=== PATIENT | female | born 1955 | race Caucasian/White ===

== ENCOUNTER 2023-09-13 16:36 | Outpatient (RCR) | payer OTHER, SELFPAY | END 2023-09-13 23:59 | disposition home or self-care (01) | LOC: RPT 16:36 | PROVIDERS: ATTENDING PHYSICIAN Obstetrics & Gynecology; PRIMARYCARE PHYSICIAN Family Medicine | DX: M62.89 Other specified disorders of muscle (principal); R10.2 Pelvic and perineal pain; R39.15 Urgency of urination; R15.1 Fecal smearing | CPT/HCPCS: 97162; 97530 ==

== ENCOUNTER 2023-10-18 18:16 | Outpatient (RCR) | payer OTHER, SELFPAY | END 2023-10-18 23:59 | disposition home or self-care (01) | LOC: RPT 18:16 | PROVIDERS: ATTENDING PHYSICIAN Obstetrics & Gynecology; PRIMARYCARE PHYSICIAN Family Medicine | DX: M62.89 Other specified disorders of muscle (principal); R10.2 Pelvic and perineal pain; R39.15 Urgency of urination; R15.1 Fecal smearing; Z73.6 Limitation of activities due to disability; Z98.890 Other specified postprocedural states | CPT/HCPCS: 97112; 97140; 97530 ==

== ENCOUNTER → 2023-11-16 15:31 | Outpatient (REF) | payer OTHER, SELFPAY | LOC: HWRAD 15:31 | PROVIDERS: ATTENDING PHYSICIAN Obstetrics & Gynecology; FAMILY PHYSICIAN Family Medicine | DX: Z78.0 Asymptomatic menopausal state (principal) | CPT/HCPCS: 77080 ==

== ENCOUNTER 2023-11-21 19:17 | Outpatient (RCR) | payer OTHER, SELFPAY | END 2023-11-21 23:59 | disposition home or self-care (01) | LOC: RPT 19:17 | PROVIDERS: ATTENDING PHYSICIAN Obstetrics & Gynecology; PRIMARYCARE PHYSICIAN Family Medicine | DX: M62.89 Other specified disorders of muscle (principal); R10.2 Pelvic and perineal pain; R39.15 Urgency of urination; R15.1 Fecal smearing; Z73.6 Limitation of activities due to disability | CPT/HCPCS: 97112; 97140; 97530 ==

== ENCOUNTER 2023-12-07 15:57 | Emergency (ER) | payer OTHER, SELFPAY ==
[2023-12-07 16:04] VITALS: BP 135/77
[2023-12-07 16:28] LABS: % Basophils 0.5 % (0-2); % Eosinophils 0.6 % (0-6); % Immature Granulocytes 0.2 % (0-0.5); % Lymphocytes 11.9 % (20.5-51.1); % Monocytes 6.1 % (1.7-9.3); % Neutrophils 80.7 % (42.2-75.2); Absolute Eosinophils 0.1 10^3/uL (0-0.7); Absolute Lymphocytes 1.1 10^3/uL (1.2-3.4); Absolute Monocytes 0.5 10^3/uL (0.1-0.6); Absolute Neutrophils 7.2 10^3/uL (1.4-6.5); Hematocrit 39.5 % (37.0-47.0); Hemoglobin 13.4 g/dL (12.0-16.0); Mean Corp Hgb Conc. 33.9 g/dL (33.0-37.0); Mean Corpuscular Hgb 28.1 pg (27.0-31.0); Mean Corpuscular Volume 82.8 fL (81.0-99.0); Mean Platelet Volume 9.4 fL (7.4-10.4); Nucleated Red Blood Cells % 0 %; Platelet Count 191 10^3/uL (130-400); Red Blood Cell Count 4.77 10^6/uL (4.20-5.40); Red Cell Dist. Width 13.2 % (11.5-14.5); White Blood Cell Count 8.9 10^3/uL (4.8-10.8)
[2023-12-07 16:44] LABS: ALT (SGPT) 17 U/L (0-35); AST (SGOT) 22 U/L (14-36); Albumin 4.6 g/dl (3.5-5.0); Alkaline Phosphatase 74 U/L (38-126); Blood Urea Nitrogen 22 mg/dl (7-17); Carbon Dioxide 28 mmol/L (22-30); Chloride 102 mmol/L (98-107); Glucose 98 mg/dl (70-99); Lipase 113 U/L (23-300); Potassium 3.9 mmol/L (3.5-5.1); Sodium 137 mmol/L (135-145); Total Bilirubin 0.8 mg/dl (0.2-1.3); Total Protein 7.7 g/dl (6.3-8.2); eGFR > 60.00
--- NOTE | 2023-12-07 17:29 | ED.GENMED ---
History of Present Illness
General
Chief Complaint: Abdominal Pain
Source: patient
Time Seen by Provider: 12/07/23 17:11
Travel History
Have you had any contact with someone who has COVID-19?: No
Do you have any symptoms of coronavirus? Fever > 100 degrees, chills, cough, shortness of breath, sore throat, loss of taste or smell, muscle aches, or headache?: No
History of Present Illness
History of Present Illness:
67-year-old female presents to the emergency room complaining of right lower quadrant abdominal pain. Pain began this morning. It is increased in severity. Seems worse with movement. Patient has had a total hysterectomy and pelvic floor
reconstruction a few months ago. She denies any fever. She has had some mild constipation. She did not take anything for the pain. She denies nausea or vomiting.
Past History
Past History
ED Past Medical History: Psychiatric (Anxiety), Other (Diverticulitis) and Other (Kidney stones)
ED Past Surgical History:
Social History
Tobacco: Non-smoker
Alcohol: None
Drug: None
Personal:
Living: with family
Employment: Employed
Family History
Family History: Other (Noncontributory)
Phy Exam
Physical Exam
Physical Exam:
General: Awake, Alert, Oriented X3. No acute distress.
Vitals: unremarkable
Head: Atraumatic
Eyes: Pupils equal, EOMI
Throat: Airway intact, no exudates
Neck: Trachea midline
Lungs: Clear and equal b/l
Heart: Regular rate, no murmurs
Abd: Soft, right lower quadrant tenderness to palpation, No pulsatile mass
Rectal:
Neuro: Nonfocal
Skin: Warm, dry, no rash
Extremities: pulses equal b/l, no edema
Course
Orders/Labs/Results
Orders:
Orders
12/07/23 16:18
Complete Blood Count/With Diff Urgent
Comprehensive Metabolic Panel Urgent
Lactic Acid Urgent
Lipase Urgent
Blood Culture Urgent
ZEKE Source: Blood/Venous
Specimen Description:
12/07/23 17:23
CT Abd/pelvis W Iv Cont Urgent
Comment:
Reason For Exam: rlq abd pain
12/07/23 17:25
0.9% Sodium Chloride 1000 ml [Nss] 1,000 ml IV BOLUS
Ketorolac [Toradol] 15 mg IV NOW STA
12/07/23 18:48
Amoxicillin 875 mg/Clav 125 mg [Augmentin 875 mg/125 mg] 1 tablet PO NOW STA
Abnormal Lab Results
12/07/23
16:18
Absolute Neuts (auto) 7.2 H 10^3/uL
(1.4-6.5)
Absolute Lymphs (auto) 1.1 L 10^3/uL
(1.2-3.4)
Neutrophils % 80.7 H %
(42.2-75.2)
Lymphocytes % 11.9 L %
(20.5-51.1)
BUN 22 H mg/dl
(7-17)
12/07/23 16:18
12/07/23 16:18
Vital Signs
Initial and Last Documented VS:
Initial Vital Signs
Temp Pulse Resp BP Pulse Ox
99.3 F 95 18 135/77 99
12/07/23 16:04 12/07/23 16:04 12/07/23 16:04 12/07/23 16:04 12/07/23 16:04
Last Documented Vital Signs
Temp Pulse Resp BP Pulse Ox
99.3 F 90 16 132/70 98
12/07/23 16:04 12/07/23 19:05 12/07/23 19:05 12/07/23 19:05 12/07/23 19:05
MDM/Problems Addressed
Differential Diagnosis Includes:
Appendicitis, diverticulitis, kidney stone
MDM/Problems Addressed:
CT positive for diverticulitis. Patient good candidate for outpatient management. Will prescribe 7 days of Augmentin twice daily. Patient understands she should return for increasing abdominal pain, fever, inability to tolerate oral intake
*Radiology
Radiology exam reviewed: radiology read reviewed
*Critical Care Note
Total Time (30-74mins, 75-104mins- exclusive of procedures): Not Applicable
ED Attending Note
-
Portions of this chart may have been created with voice recognition software.� Occasional wrong word or��sound alike� substitutions may have occurred due to the inherent limitations of voice recognition software.
Discharge Plan
Departure
Patient Disposition: Home (Routine Discharge)
Date of Disposition: 12/07/23
Time of Disposition: 18:40
Patient with high blood pressure during this ER visit?: Yes
Condition: Good
Discharge Problem:
Diverticulitis
Instructions: Diverticulitis (DC)
Prescriptions:
New
amoxicillin-pot clavulanate 875-125 mg tablet
1 tab PO BID Qty: 14 0RF
No Action
acetaminophen 325 mg Tablet
650 mg PO Q4HPRN PRN (Reason: mild pain) Qty: 0 0RF
oxycodone 5 mg Tablet
2.5 mg PO Q4HPRN PRN (Reason: moderate pain) Qty: 0 0RF
oxycodone 5 mg Tablet
5 mg PO Q4HPRN PRN (Reason: severe pain when tolerating PO) Qty: 12 0RF
Referrals:
Robbi Teixeira MD [Active] -
Beckie Banegas MD [Family Provider] -
Activity Restrictions/Additional Instructions:
Your CT shows diverticulitis. I sent a prescription for an antibiotic which you should take twice a day for a week. You should follow up with a GI doctor to make sure everything clears up....you need a colonoscopy as part of follow up for this.
Please call the GI doctor's office and make an appointment.
Interventions
Interventions:
*Risk Screen - Suicide Last Done: 12/07/23 16:04
*General Assessment Last Done: 12/07/23 16:04
*Neglect/Abuse Screening Last Done: 12/07/23 17:32
ED- Fall Risk Assessment Last Done: 12/07/23 17:32
*ED COVID-19 Vaccine History Last Done: 12/07/23 17:32
*Nursing Disposition Last Done: 12/07/23 19:07
ZX-Ryvdqw-Wzgaodnznm Assessment Last Done: 12/07/23 17:32
Discharge Date and Time
Discharge Date/Time: 12/07/23 19:08
[2023-12-07 17:32] VITALS: BMI 24.3
[2023-12-07] MEDS: NSS 1000 IV (17:52)
[2023-12-07] MEDS: TORADOL 15 MG IV (17:53)
[2023-12-07] MEDS: AUGMENTIN 875 MG/125 MG 1 TABLET PO (18:58)
[2023-12-07 19:05] VITALS: BP 132/70
== END 2023-12-07 19:08 | disposition home or self-care (01) ==
LOC: EMR 15:57
PROVIDERS: EMERGENCY PHYSICIAN Emergency Medicine; FAMILY PHYSICIAN Family Medicine
DX: K57.32 Diverticulitis of large intestine without perforation or abscess without bleeding (principal); R03.0 Elevated blood-pressure reading, without diagnosis of hypertension; Z87.442 Personal history of urinary calculi
CPT/HCPCS: 99284; 96374; 96361; 74177; 80053; 83605; 83690; 85025; 87040; Q9967

== ENCOUNTER 2023-12-20 16:07 | Outpatient (RCR) | payer OTHER, SELFPAY | END 2023-12-20 23:59 | disposition home or self-care (01) | LOC: RPT 16:07 | PROVIDERS: ATTENDING PHYSICIAN Obstetrics & Gynecology; PRIMARYCARE PHYSICIAN Family Medicine | DX: M62.89 Other specified disorders of muscle (principal); R10.2 Pelvic and perineal pain; R39.15 Urgency of urination; R15.1 Fecal smearing; Z73.6 Limitation of activities due to disability | CPT/HCPCS: 97140; 97530 ==

== ENCOUNTER 2024-01-02 16:57 | Outpatient (RCR) | payer OTHER, SELFPAY | END 2024-01-02 23:59 | disposition home or self-care (01) | LOC: RPT 16:57 | PROVIDERS: ATTENDING PHYSICIAN Obstetrics & Gynecology; PRIMARYCARE PHYSICIAN Family Medicine | DX: M62.89 Other specified disorders of muscle (principal); R10.2 Pelvic and perineal pain; R39.15 Urgency of urination; R15.1 Fecal smearing; Z73.6 Limitation of activities due to disability | CPT/HCPCS: 97140; 97530 ==

== ENCOUNTER → 2024-01-22 10:39 | Outpatient (REF) | payer OTHER, SELFPAY ==
[2024-01-22 11:53] LABS: Ionized Calcium 1.15 mMOL/L (1.15-1.33)
[2024-01-22 12:25] LABS: ALT (SGPT) 27 U/L (0-35); AST (SGOT) 28 U/L (14-36); Albumin 4.5 g/dl (3.5-5.0); Alkaline Phosphatase 77 U/L (38-126); Blood Urea Nitrogen 14 mg/dl (7-17); Calcium 9.3 mg/dl (8.4-10.2); Carbon Dioxide 27 mmol/L (22-30); Chloride 104 mmol/L (98-107); Glucose 91 mg/dl (70-99); Potassium 4.1 mmol/L (3.5-5.1); Sodium 139 mmol/L (135-145); Total Bilirubin 0.7 mg/dl (0.2-1.3); Total Protein 7.5 g/dl (6.3-8.2); eGFR > 60.00
[2024-01-22 12:40] LABS: Vitamin D, 25-OH*** 37.6 ng/mL (30-80)
[2024-01-22 12:56] LABS: Intact PTH 56.3 pg/ml (13.6-85.8)
== END ==
LOC: HWLAB 10:39
PROVIDERS: ATTENDING PHYSICIAN Internal Medicine Rheumatology; FAMILY PHYSICIAN Family Medicine; REFERRING PHYSICIAN Obstetrics & Gynecology
DX: E21.5 Disorder of parathyroid gland, unspecified (principal); E55.9 Vitamin D deficiency, unspecified; M81.0 Age-related osteoporosis without current pathological fracture; M54.9 Dorsalgia, unspecified
CPT/HCPCS: 36415; 72072; 72100; 80053; 82306; 82330; 83970

== ENCOUNTER → 2024-04-03 14:00 | Outpatient (REF) | payer OTHER, SELFPAY | LOC: WDC 14:00 | PROVIDERS: ATTENDING PHYSICIAN Obstetrics & Gynecology; FAMILY PHYSICIAN Family Medicine | DX: R92.2 Inconclusive mammogram (principal) | CPT/HCPCS: 76641 ==

== ENCOUNTER → 2024-12-08 09:12 | Outpatient (REF) | payer MEDICARE, OTHER, SELFPAY | LOC: HWWDC 09:12 | PROVIDERS: ATTENDING PHYSICIAN Family Medicine; REFERRING PHYSICIAN Obstetrics & Gynecology | DX: Z12.31 Encounter for screening mammogram for malignant neoplasm of breast (principal) | CPT/HCPCS: 77063; 77067 ==

== ENCOUNTER 2025-02-20 11:23 | Emergency (ER) | payer MEDICARE, OTHER, SELFPAY ==
[2025-02-20 11:30] VITALS: BP 139/92
[2025-02-20 13:50] VITALS: BMI 24.4
[2025-02-20 13:51] VITALS: BP 138/103
[2025-02-20 14:00] VITALS: BP 132/81
[2025-02-20 14:28] LABS: % Basophils 0.8 % (0-2); % Eosinophils 3.9 % (0-6); % Immature Granulocytes 0.2 % (0-0.5); % Lymphocytes 35.5 % (20.5-51.1); % Monocytes 8.1 % (1.7-9.3); % Neutrophils 51.5 % (42.2-75.2); Absolute Eosinophils 0.2 10^3/uL (0-0.7); Absolute Lymphocytes 1.7 10^3/uL (1.2-3.4); Absolute Monocytes 0.4 10^3/uL (0.1-0.6); Absolute Neutrophils 2.5 10^3/uL (1.4-6.5); Hematocrit 37.1 % (37.0-47.0); Hemoglobin 12.5 g/dL (12.0-16.0); Mean Corp Hgb Conc. 33.7 g/dL (33.0-37.0); Mean Corpuscular Hgb 28.2 pg (27.0-31.0); Mean Corpuscular Volume 83.6 fL (81.0-99.0); Mean Platelet Volume 9.1 fL (7.4-10.4); Nucleated Red Blood Cells % 0 %; Platelet Count 186 10^3/uL (130-400); Red Blood Cell Count 4.44 10^6/uL (4.20-5.40); Red Cell Dist. Width 13.4 % (11.5-14.5); White Blood Cell Count 4.8 10^3/uL (4.8-10.8)
[2025-02-20 14:52] LABS: Blood Urea Nitrogen 11 mg/dl (7-17); Calcium 8.7 mg/dl (8.4-10.2); Carbon Dioxide 28 mmol/L (22-30); Chloride 107 mmol/L (98-107); Estimated Creatinine Clearance 72 ml/min; Glucose 94 mg/dl (70-99); Potassium 3.7 mmol/L (3.5-5.1); Sodium 142 mmol/L (135-145); eGFR > 60.00
[2025-02-20 15:00] VITALS: BP 133/84
[2025-02-20 15:01] VITALS: BP 133/84
--- NOTE | 2025-02-20 17:08 | ED.GENMED ---
History of Present Illness
General
Chief Complaint: Skin Problem
Source: patient
Exam Limitations: none
Time Seen by Provider: 02/20/25 13:56
Nursing documentation reviewed up to this point in time: agreed with
History of Present Illness
History of Present Illness:
Patient presents to ED secondary to 1 week history of swelling/lump, noted over her left shoulder. Patient was evaluated at urgent care center who referred patient to ED for an evaluation. Denies fever or chills. Denies nausea or vomiting.
Denies chest pain or shortness of breath. Denies trauma. Denies recent weight changes. Denies previous history of similar symptoms. Patient does report mild painful sensation with palpation.
Past History
Past History
ED Past Medical History: Psychiatric (Anxiety), Other (Diverticulitis) and Other (Kidney stones)
ED Past Surgical History:
Social History
Tobacco: Non-smoker
Alcohol: None
Drug: None
Personal:
Living: with family
Employment: Employed
Family History
Family History: Other (Noncontributory)
Review of Systems
Review of Systems
Allergies reviewed?: Yes
All Other Systems: ROS reviewed and negative except as documented in HPI and ROS
Constitutional: Reports no symptoms; Denies fever
ABD/GI: Reports no symptoms
Musculoskeletal: Reports no symptoms
Skin: Reports other (swelling/lump)
Neurological: Reports no symptoms
Phy Exam
Physical Exam
Physical Exam:
Physical Exam
General: no apparent distress, not acutely ill. afebrile
Head: nc/at. eomi
Neck: supple. no meningeal signs.
Neuro: alert and oriented x 3. no focal neurological deficits
Skin: an approx 1mm raised cystic lesion noted near left shoulder, mildly tender to palpation, without surrounding erythema/ecchymosis/warmth
Psychiatric: well kept. interactive and cooperative
Extremities: no edema. no calf tenderness.
Course
Orders/Labs/Results
Orders:
Orders
02/20/25 14:12
CT Neck With Iv Contrast Urgent
Comment:
Reason For Exam: left sided nect pain w swelling, ext to trapezius
02/20/25 14:16
Basic Metabolic Panel Urgent
Complete Blood Count/With Diff Urgent
02/20/25 14:16
02/20/25 14:16
Vital Signs
Initial and Last Documented VS:
Initial Vital Signs
Temp Pulse Resp BP Pulse Ox
98.4 F 56 16 139/92 99
02/20/25 11:30 02/20/25 11:30 02/20/25 11:30 02/20/25 11:30 02/20/25 11:30
Last Documented Vital Signs
Temp Pulse Resp BP Pulse Ox
97.6 F 60 15 133/84 98
02/20/25 13:51 02/20/25 15:01 02/20/25 15:01 02/20/25 15:01 02/20/25 15:01
MDM/Problems Addressed
MDM/Problems Addressed:
CT neck report reviewed and discussed with patient. Blood work within normal limits. Patient otherwise remains afebrile, hemodynamically stable, and nontoxic-appearing. Patient advised to follow-up with her primary care physician and/or
qual research manager for reevaluation.
*Critical Care Note
Total Time (30-74mins, 75-104mins- exclusive of procedures): Not Applicable
ED Attending Note
-
Portions of this chart may have been created with voice recognition software.� Occasional wrong word or��sound alike� substitutions may have occurred due to the inherent limitations of voice recognition software.
Discharge Plan
Departure
Patient Disposition: Home (Routine Discharge)
Date of Disposition: 02/20/25
Time of Disposition: 17:08
Patient with high blood pressure during this ER visit?: Yes
Condition: Good
Discharge Problem:
Cyst
Prescriptions:
No Action
acetaminophen 325 mg Tablet
650 mg PO Q4HPRN PRN (Reason: mild pain) Qty: 0 0RF
Referrals:
Beckie Banegas MD [Family Provider, [facility]]
Activity Restrictions/Additional Instructions:
As discussed, please follow-up with your primary care physician and/or qual research manager for further evaluation and treatment.
Interventions
Interventions:
*Risk Screen - Suicide Last Done: 02/20/25 11:30
*General Assessment Last Done: 02/20/25 13:51
*Neglect/Abuse Screening Last Done: 02/20/25 11:30
*ED- Fall Risk Assessment Last Done: 02/20/25 13:51
*ED COVID-19 Vaccine History Last Done: 02/20/25 13:51
*Nursing Disposition Last Done: 02/20/25 17:15
ED-Skin Assessment Last Done: 02/20/25 13:51
Discharge Date and Time
Discharge Date/Time: 02/20/25 17:15
Print Language: PANAMANIAN
== END 2025-02-20 17:15 | disposition home or self-care (01) ==
LOC: EMR 11:23
PROVIDERS: EMERGENCY PHYSICIAN Emergency Medicine; FAMILY PHYSICIAN Family Medicine
DX: L72.9 Follicular cyst of the skin and subcutaneous tissue, unspecified (principal)
CPT/HCPCS: 99284; 70491; 80048; 85025; Q9967

== ENCOUNTER 2025-05-17 14:56 | Emergency (ER) | payer MEDICARE, OTHER, SELFPAY ==
[2025-05-17 15:00] VITALS: BP 128/89
[2025-05-17 15:23] LABS: Urine Character Clear (Clear)
[2025-05-17 15:25] LABS: Hematocrit 35.0 % (37.0-47.0); Hemoglobin 11.5 g/dL (12.0-16.0); Mean Corp Hgb Conc. 32.9 g/dL (33.0-37.0); Mean Corpuscular Volume 83.3 fL (81.0-99.0); Nucleated Red Blood Cells % 0 %; Platelet Count 216 10^3/uL (130-400); Red Cell Dist. Width 13.2 % (11.5-14.5)
[2025-05-17 15:35] LABS: ALT (SGPT) 14 U/L (0-35); AST (SGOT) 16 U/L (14-36); Albumin 4.0 g/dl (3.5-5.0); Alkaline Phosphatase 78 U/L (38-126); Blood Urea Nitrogen 11 mg/dl (7-17); Calcium 8.6 mg/dl (8.4-10.2); Carbon Dioxide 26 mmol/L (22-30); Chloride 106 mmol/L (98-107); Glucose 131 mg/dl (70-99); Potassium 3.9 mmol/L (3.5-5.1); Sodium 138 mmol/L (135-145); Total Protein 6.7 g/dl (6.3-8.2); eGFR > 60.00
--- NOTE | 2025-05-17 15:59 | ED.GENMED ---
History of Present Illness
General
Chief Complaint: Abdominal Symptoms
Source: patient
Exam Limitations: none
Time Seen by Provider: 05/17/25 15:37
Nursing documentation reviewed up to this point in time: agreed with
History of Present Illness
History of Present Illness:
Patient is a 69-year-old female with past medical history of diverticulitis presents to the ER for evaluation. For the past several days she has had abdominal bloating and yesterday noticed that she was urinating every 20 to 40 minutes. This
morning she reports an episode of incontinence which is not like her.
Today she notes she had left-sided abdominal pain which she also felt in her left back. She went to urgent care and urinalysis was negative and was sent here to the ER for evaluation. She does have a history of diverticulitis. She denies any
constipation diarrhea. She denies any weakness to lower extremities or numbness tingling. In addition she also would like a lump to the left lateral clavicle/neck area evaluated. She reports she was seen here in January 2025 and had a negative CAT
scan however this area has gotten bigger. She did see her family doctor for this who thought this might with antibiotics however she has not had improvement.
Past History
Past History
ED Past Medical History: Psychiatric (Anxiety), Other (Diverticulitis) and Other (Kidney stones)
ED Past Surgical History:
Social History
Tobacco: Non-smoker
Alcohol: None
Drug: None
Personal:
Living: with family
Employment: Employed
Family History
Family History: Other (Noncontributory)
Phy Exam
General Physical Exam
General Presentation: no apparent distress
General age: appears stated age
General Skin: warm and dry
General Habitus: normal
General Mental: alert
General Hydration: appears well hydrated
Cardiovascular Exam
Cardiovascular Exam: regular rate/rhythm, no murmur and normal peripheral pulses
Pulmonary Exam
Pulmonary Exam: lungs clear and no respiratory distress
Gastrointestinal Exam
Gastrointestinal Exam: soft (left sided abd tenderness )
Neurological Exam
Neurological Exam: alert and oriented x3
Musculoskeletal Exam
Musculoskeletal Exam: full ROM
Skin Exam
Skin Exam: normal color and warm/dry
Psychiatric Exam
Psychiatric Exam: normal mood/affect
Course
Orders/Labs/Results
Orders:
Orders
05/17/25 15:10
Complete Blood Count/With Diff Urgent
Comprehensive Metabolic Panel Urgent
05/17/25 15:14
Urinalysis Reflex To Culture Urgent
Date Specimen was Collected: 05/17/25
Time Specimen was Collected: 15:05
05/17/25 16:09
US Chest - Left Urgent
Comment:
Reason For Exam: mass left clavicle region
05/17/25 16:10
CT Abd/pelvis W Iv Cont Urgent
Comment:
Reason For Exam: left sided abd tenderness
05/17/25 16:14
0.9% Sodium Chloride 1000 ml [Nss] 1,000 ml IV BOLUS
Ketorolac [Toradol] 15 mg IV NOW STA
05/17/25 19:23
Amoxicillin 875 mg/Clav 125 mg [Augmentin 875 mg/125 mg] 1 tablet PO NOW STA
Abnormal Lab Results
05/17/25
15:10
Hgb 11.5 L g/dL
(12.0-16.0)
Hct 35.0 L %
(37.0-47.0)
MCHC 32.9 L g/dL
(33.0-37.0)
Absolute Neuts (auto) 6.6 H 10^3/uL
(1.4-6.5)
Lymphocytes % 15.1 L %
(20.5-51.1)
Glucose 131 H mg/dl
(70-99)
05/17/25 15:10
05/17/25 15:10
Vital Signs
Initial and Last Documented VS:
Initial Vital Signs
Temp Pulse Resp BP Pulse Ox
98.7 F 89 18 128/89 98
05/17/25 15:00 05/17/25 15:00 05/17/25 15:00 05/17/25 15:00 05/17/25 15:00
Last Documented Vital Signs
Temp Pulse Resp BP Pulse Ox
98.7 F 73 18 110/81 96
05/17/25 15:00 05/17/25 16:49 05/17/25 16:49 05/17/25 16:49 05/17/25 16:49
MDM/Problems Addressed
Differential Diagnosis Includes:
Not limited to diverticulitis, UTI soft tissue mass
MDM/Problems Addressed:
CAT scan shows findings consistent with acute diverticulitis of the mid transverse colon no perforation. There is a 4 mm solid nodule within the left lateral lobe which is nonspecific. I did review this with patient and did discuss outpatient
follow-up.
Patient is awake alert in no acute distress afebrile normal white count, negative urinalysis Will d/c on augmentin.
In addition pt has had swelling to left lateral neck region and had this evaluated February 20 here by CAT scan. She was diagnosed with cyst at the time however complains increased swelling to the area. Patient has a soft area of swelling just above
the clavicle adjacent to a cyst. Ultrasound does not reveal anything other than a cyst however discussed close outpatient follow-up with PCP may need additional imaging
She is stable for discharge home strict return precautions
*Radiology
Radiology exam reviewed: radiology read reviewed
*Pulse Oximetry
SaO2: 98
Oxygen Mode of Delivery: Room air
Patient hypoxic: no
*Critical Care Note
Total Time (30-74mins, 75-104mins- exclusive of procedures): Not Applicable
ED Attending Note
-
Portions of this chart may have been created with voice recognition software.� Occasional wrong word or��sound alike� substitutions may have occurred due to the inherent limitations of voice recognition software.
Discharge Plan
Departure
Patient Disposition: Home (Routine Discharge)
Date of Disposition: 05/17/25
Time of Disposition: 19:23
Patient with high blood pressure during this ER visit?: Yes
Condition: Fair
Covid-19: Not Applicable
Discharge Problem:
Diverticulitis
Instructions: Diverticulitis (DC), BLOOD PRESSURE
Prescriptions:
New
amoxicillin-pot clavulanate 875-125 mg tablet
1 tab PO BID Qty: 20 0RF
No Action
acetaminophen 325 mg Tablet
650 mg PO Q4HPRN PRN (Reason: mild pain) Qty: 0 0RF
Referrals:
Beckie Banegas MD [Family Provider, Family Practice]
Activity Restrictions/Additional Instructions:
As discussed you are prescribed Augmentin to take for diverticulitis take twice a day for the next 10 days. This medication was sent to your pharmacy
Also please follow-up with your family doctor for other additional findings including pulmonary nodule as well as persistent swelling to left lateral neck region. You may need additional imaging. Return if any worsening of symptoms.
Interventions
Interventions:
*Risk Screen - Suicide Last Done: 05/17/25 15:00
*General Assessment Last Done: 05/17/25 15:00
*Neglect/Abuse Screening Last Done: 05/17/25 15:00
DB-Gnbuok-Txtiukcxsn Assessment Last Done: 05/17/25 17:15
Discharge Date and Time
Print Language: UZBEK
[2025-05-17] MEDS: TORADOL 15 MG IV (16:47)
[2025-05-17] MEDS: NSS 1000 IV (16:47)
[2025-05-17 16:49] VITALS: BP 110/81
[2025-05-17] MEDS: AUGMENTIN 875 MG/125 MG 1 TABLET PO (19:52)
== END 2025-05-17 20:07 | disposition home or self-care (01) ==
LOC: EMR 14:56
PROVIDERS: Emergency Medicine; EMERGENCY PHYSICIAN Emergency Medicine; FAMILY PHYSICIAN Family Medicine
DX: K57.32 Diverticulitis of large intestine without perforation or abscess without bleeding (principal); R32 Unspecified urinary incontinence; R35.0 Frequency of micturition; R22.1 Localized swelling, mass and lump, neck; L72.8 Other follicular cysts of the skin and subcutaneous tissue; R03.0 Elevated blood-pressure reading, without diagnosis of hypertension; R91.1 Solitary pulmonary nodule; F41.9 Anxiety disorder, unspecified; M81.0 Age-related osteoporosis without current pathological fracture; G47.30 Sleep apnea, unspecified; Z87.442 Personal history of urinary calculi; Z88.6 Allergy status to analgesic agent; Z88.1 Allergy status to other antibiotic agents
CPT/HCPCS: 99284; 96361; 96374; 74177; 76604; 80053; 81003; 85025; Q9967

== ENCOUNTER 2025-06-05 09:14 | Outpatient (RCR) | payer MEDICARE, OTHER, SELFPAY | END 2025-06-05 23:59 | disposition home or self-care (01) | LOC: RPT 09:14 | PROVIDERS: ATTENDING PHYSICIAN Obstetrics & Gynecology; FAMILY PHYSICIAN Family Medicine | DX: R35.0 Frequency of micturition (principal); N81.11 Cystocele, midline; M62.89 Other specified disorders of muscle; N39.41 Urge incontinence; Z73.6 Limitation of activities due to disability | CPT/HCPCS: 97163; 97530 ==

== ENCOUNTER 2025-07-20 06:28 | Day surgery (SDC) | payer MEDICARE, OTHER, SELFPAY | END 2025-07-20 15:13 | disposition home or self-care (01) | LOC: GI 06:28 | PROVIDERS: ATTENDING PHYSICIAN Internal Medicine; FAMILY PHYSICIAN Family Medicine | DX: K57.32 Diverticulitis of large intestine without perforation or abscess without bleeding (principal); K64.9 Unspecified hemorrhoids; K57.30 Diverticulosis of large intestine without perforation or abscess without bleeding; D49.0 Neoplasm of unspecified behavior of digestive system; D12.2 Benign neoplasm of ascending colon; K31.89 Other diseases of stomach and duodenum | CPT/HCPCS: 45380; 88305 ==

== ENCOUNTER 2025-07-24 09:22 | Outpatient (RCR) | payer MEDICARE, OTHER, SELFPAY | END 2025-07-24 23:59 | disposition home or self-care (01) | LOC: RPT 09:22 | PROVIDERS: ATTENDING PHYSICIAN Obstetrics & Gynecology; FAMILY PHYSICIAN Family Medicine | DX: R35.0 Frequency of micturition (principal); N81.11 Cystocele, midline; M62.89 Other specified disorders of muscle; N39.41 Urge incontinence; Z73.6 Limitation of activities due to disability | CPT/HCPCS: 97014; 97112; 97140; 97530 ==

== ENCOUNTER → 2025-08-06 11:07 | Outpatient (REF) | payer MEDICARE, OTHER, SELFPAY | LOC: HWRAD 11:07 | PROVIDERS: ATTENDING PHYSICIAN Family Medicine; REFERRING PHYSICIAN Thoracic Surgery (Cardiothoracic Vascular Surgery) | DX: R91.1 Solitary pulmonary nodule (principal) | CPT/HCPCS: 71250 ==

== ENCOUNTER 2025-08-11 09:34 | Outpatient (RCR) | payer MEDICARE, OTHER, SELFPAY | END 2025-08-11 23:59 | disposition home or self-care (01) | LOC: RPT 09:34 | PROVIDERS: ATTENDING PHYSICIAN Obstetrics & Gynecology; FAMILY PHYSICIAN Family Medicine | DX: R35.0 Frequency of micturition (principal); N81.11 Cystocele, midline; M62.89 Other specified disorders of muscle; N39.41 Urge incontinence; Z73.6 Limitation of activities due to disability | CPT/HCPCS: 97014; 97112; 97530 ==

== ENCOUNTER 2025-08-25 11:39 | Outpatient (RCR) | payer MEDICARE, OTHER, SELFPAY | END 2025-08-25 23:59 | disposition home or self-care (01) | LOC: RPT 11:39 | PROVIDERS: ATTENDING PHYSICIAN Obstetrics & Gynecology; FAMILY PHYSICIAN Family Medicine | DX: R35.0 Frequency of micturition (principal); N81.11 Cystocele, midline; M62.89 Other specified disorders of muscle; N39.41 Urge incontinence; Z73.6 Limitation of activities due to disability | CPT/HCPCS: 97112; 97140; 97530 ==

== ENCOUNTER 2025-09-03 05:59 | Day surgery (SDC) | payer MEDICARE, OTHER, SELFPAY ==
[2025-08-31 12:41] VITALS: BMI 24.9
[2025-09-03] VITALS (21 sets, daily range): BP systolic 80–119; BP diastolic 54–76; BMI 24.9
[2025-09-03] MEDS: NEURONTIN 600 MG PO (06:50)
[2025-09-03] MEDS: TYLENOL 1000 MG PO (06:50)
[2025-09-03] MEDS: RELISTOR 12 MG SC (06:51)
[2025-09-03] MEDS: NORMOSOL-R/PLASMALYTE-A 1000 IV ×3 (06:52→21:12)
[2025-09-03] MEDS: HEPARIN 5000 UNITS SC (07:05)
[2025-09-03] MEDS: EMEND 40 MG PO (07:10)
--- NOTE | 2025-09-03 09:26 | W.IMMPOSTOP ---
Surgical Immed Post Op Note
-
Primary Surgeon: Robbie Ruby MD
Assisting Surgeon: ANA MARIA Ridley
Pre-op Diagnosis: submucosal appendiceal lesion (?mucocele)
Post-op Diagnosis: same
Procedure Performed: robotic appendectomy with partial cecectomy
Anesthesia Type: general plus local
Specimen / Cultures: appendix plus cuff of cecum
Estimated Blood Loss: 10 cc
Complications: no immediate
Operative Findings: normal appearing appendix
Will bring in for post surgical observation with plans to discharge tomorrow am.
[2025-09-03] MEDS: DILAUDID 0.25 MG IV ×2 (09:40→09:52)
[2025-09-03] MEDS: DILAUDID 0.5 MG IV (10:13)
[2025-09-03 10:27] LABS: Hematocrit 37.0 % (37.0-47.0); Hemoglobin 11.7 g/dL (12.0-16.0); Mean Corp Hgb Conc. 31.6 g/dL (33.0-37.0); Mean Corpuscular Volume 85.5 fL (81.0-99.0); Nucleated Red Blood Cells % 0 %; Platelet Count 169 10^3/uL (130-400); Red Cell Dist. Width 13.8 % (11.5-14.5)
[2025-09-03 10:46] LABS: Blood Urea Nitrogen 11 mg/dl (7-17); Calcium 8.0 mg/dl (8.4-10.2); Carbon Dioxide 26 mmol/L (22-30); Chloride 102 mmol/L (98-107); Estimated Creatinine Clearance 72 ml/min; Glucose 123 mg/dl (70-99); Potassium 3.7 mmol/L (3.5-5.1); Sodium 137 mmol/L (135-145); eGFR > 60.00
[2025-09-03] MEDS: TORADOL 10 MG IV ×3 (11:36→21:12)
[2025-09-03] MEDS: ZOFRAN 4 MG IV ×2 (12:09→17:49)
[2025-09-03] MEDS: TYLENOL PO ×4 (12:41→16:40)
[2025-09-03] MEDS: TRANSDERM-SCOP 1 PATCH TRANSDERM (15:51)
[2025-09-03] MEDS: ANTIVERT 12.5 MG PO (15:52)
[2025-09-03] MEDS: TYLENOL 650 MG PO ×2 (18:41→23:09)
[2025-09-03] MEDS: COMPAZINE 10 MG IV (21:13)
[2025-09-03 22:32] LABS: Hematocrit 31.2 % (37.0-47.0); Hemoglobin 10.4 g/dL (12.0-16.0); Mean Corp Hgb Conc. 33.3 g/dL (33.0-37.0); Mean Corpuscular Volume 81.7 fL (81.0-99.0); Platelet Count 158 10^3/uL (130-400); Red Cell Dist. Width 13.6 % (11.5-14.5)
[2025-09-03] MEDS: NSS 500 IV (22:49)
[2025-09-03 22:55] LABS: Blood Urea Nitrogen 9 mg/dl (7-17); Calcium 8.0 mg/dl (8.4-10.2); Carbon Dioxide 25 mmol/L (22-30); Chloride 101 mmol/L (98-107); Estimated Creatinine Clearance 72 ml/min; Glucose 184 mg/dl (70-99); Potassium 3.9 mmol/L (3.5-5.1); Sodium 129 mmol/L (135-145); eGFR > 60.00
--- NOTE | 2025-09-03 23:07 | W.PN.UPDATE ---
Update Note
Progress Note Update
RN reported patient c/o nausea and has already received medications for it. BP soft 82/58 (likely due to meds). 500 CC IV bolus given. Labs ordered
Patient seen. Sleeping easily arousable. oriented. tells me she is dizzy, nausea is better and has a hx of vertigo.
denies any pain or discomfort in abdomen or anywhere. Abdomen distended, soft, non tender, + BS incision in place CDI.
lab results noted.
BP remains soft maintain fluids
Advised to remove scopolamine patch
Will give Midodrine 5mg POx1. ->> 90/53
likely medication induced hypotension? .
0430 patient stated she was having chest discomfort BP 89/52 76 18 98.4 100
patient seen and evaluated. Sleeping easily arousable, states she had pain mid chest, which went away on its own, non radiating. Denies shortness of breath.
lungs clear, HR RR + BS 4 quad, non tender soft Likely GERD. no more complaints at present.
Colorectal Dr made aware. no new interventions at present.
[2025-09-03] MEDS: NSS 1000 IV (23:10)
[2025-09-04] VITALS (13 sets, daily range): BP systolic 84–144; BP diastolic 45–63; PULSE 68–72
--- NOTE | 2025-09-04 02:03 | PTCARENOTE ---
Pt c/o dizziness/lightheadedness, abdominal pain/tenderness and nausea. Pt states she has hx of vertigo and reports previous physical therapy with resolution of vertigo. IV compazine given with relief of nausea. Scheduled toradol given with
adequate relief of pain. BP 84/54. MARINE RIGGER notified. 500ml bolus ordered and hung. Scopolamine patch removed per MARINE RIGGER request. Labs ordered, drawn, sent to lab. Hgb 10.4, Na 129. MARINE RIGGER notified. Urine samples obtained and sent to lab for urine sodium and
osmo. Serum osmo added on to SST. Pt remained hypotensive. 5mg midodrine ordered and given. Pt drowsy but arousable. No c/o dizziness, pain or nausea. Drifts back off to sleep within a few seconds. Care ongoing
[2025-09-04] MEDS: TYLENOL 650 MG PO ×4 (04:27→23:02)
[2025-09-04] MEDS: TORADOL 10 MG IV ×4 (04:27→21:49)
--- NOTE | 2025-09-04 05:06 | PTCARENOTE ---
Pt c/o chest tightness. EKG done - NSR. VSS. BP remains low. 89/52. Troponin added to am labs, drawn and sent to lab. Orders placed for telemetry monitoring. Tele monitor applied. NSR on monitor. HR 60s. Pt remains drowsy, but easily arousable.
Resting comfortably in bed at this time. Care ongoing.
[2025-09-04 05:10] LABS: Hematocrit 33.3 % (37.0-47.0); Hemoglobin 11.2 g/dL (12.0-16.0); Mean Corp Hgb Conc. 33.6 g/dL (33.0-37.0); Mean Corpuscular Volume 82.0 fL (81.0-99.0); Nucleated Red Blood Cells % 0 %; Platelet Count 186 10^3/uL (130-400); Red Cell Dist. Width 13.8 % (11.5-14.5)
[2025-09-04 05:36] LABS: Blood Urea Nitrogen 6 mg/dl (7-17); Calcium 8.4 mg/dl (8.4-10.2); Carbon Dioxide 24 mmol/L (22-30); Chloride 113 mmol/L (98-107); Estimated Creatinine Clearance 72 ml/min; Glucose 91 mg/dl (70-99); Potassium 3.9 mmol/L (3.5-5.1); Sodium 139 mmol/L (135-145); eGFR > 60.00
[2025-09-04 05:47] LABS: Troponin I 0.013 ng/ml
[2025-09-04] MEDS: TYLENOL PO ×2 (07:52→16:23)
--- NOTE | 2025-09-04 08:49 | CM ---
program management manager reviewed patient's chart and met with patient and patient states she lives alone in a townhouse, 2 steps to enter, patient is independent with adl's and ambulation, no dme, patient drives, home when stable, no needs.
PCP: Dr Banegas
Pharmacy [facility] on [facility].
Plan; Home no needs when stable.
[2025-09-04] MEDS: NSS 1000 IV ×2 (09:44→19:47)
--- NOTE | 2025-09-04 10:51 | W.PN.CRS1 ---
Today's Communication / Plan
-
regular diet
consult hospitalist
?dc later today if hypotension resolved and tolerating a diet
Assessment/Plan
-
POD#1 robotic appendectomy with partial cecectomy
vitals: normal
WBC: 7.9. Hgb 11.2.
-Advance diet to regular
-Will keep IVFs for now given hypotension
-OOB as tolerated
-Lovenox for DVT prophylaxis
-Will consult hospitalist due to hypotension/dizziness.
-Possible d/c later today if has improvement and tolerating a diet.
-OR pathology pending.
-Will switch to tramadol po from Dilaudid IV.
Subjective Data
Subjective Data
Date of Service: September 04, 2025
Patient states she feels better today but she was dizzy overnight. She was nauseous yesterday but that has improved. She states that she feels hungry. She has had anesthesia before and has not encountered side effect like this in the past. Her
pain is controlled.
Objective Data
-
Vital Signs
Temp Pulse Resp BP Pulse Ox
98.8 F 61 16 100/57 93
09/04/25 07:45 09/04/25 09:46 09/04/25 07:45 09/04/25 09:46 09/04/25 07:45
Intake & Output
09/03/25 09/04/25 09/05/25
06:59 06:59 06:59
Intake Total 500 / 500 580 / 580
Output Total 1100 / 1100
Balance -600 / -600 580 / 580
Intake:
Oral fluids 580 / 580
IV fluids (Total) 500 / 500
Output:
Urine, Nguyen 250 / 250
Urine, Voided 850 / 850
Other:
How many times incontinent 1
MODERATE amount urine
Number of approximated LARGE 1
amounts of urine
Lab Results
09/04/25 04:46
09/04/25 04:46
Physical Exam
-
General: No Acute Distress and AOx3
Abdomen: Soft, Non Distended and Non Tender
Skin: Warm and Dry
Incision: Clear, Dry, Intact
--- NOTE | 2025-09-04 11:19 | CON.HOSP ---
Consultation
-
Date/Time Consultation Requested: 09/04/25 11 am
Date/Time Consultation Performed: 09/04/25 11.45am
Requesting Provider: Phillip Ngo
Performing Provider: Kelvin Choe
Reason for Consultation: s/p DAY 1 appendectomy- dizziness, nausea
Family Physician
-
Family Physician: Beckie Banegas
Chief Complaint
-
dizziness, nausea.
History of Present Illness
Patient is a 69-year-old female who underwent a colonoscopy by Dr. Berna Flores of GI showing a sizable submucosal lesion at the appendiceal orifice with some mucus coming from the orifice itself. CT scan prior apparently on review had a concern for
mucocele and underwent robotic appendectomy.
yesterday around 4.30 pm at post op: BP 89/52 76 18 98.4 100
previously 84/47 ----she received normal saline 1000 ml, midodrine, at that time she was on n.p.o. 100ml/hr = currently 100/57, currently tolerating fluids.
S/p day 1 robotic appendectomy with partial cecectomy
Patient today morning when she went to the restroom she felt she has dizziness and almost passing out associated with the room spinning around her, blurry vision. She experienced nausea and received meclizine.
Denied shortness of breath, chest pain, palpitation at the time of dizziness. Not passed flatus, no bowel movement, tolerating liquids.
EKG on 09/04 showed normal sinus rhythm with normal GA, QT interval.
WBC 6.5--7.9, Hemoglobin 10.4--11.2, Chemistry: Blood glucose 113high, bun 6 low, estimated creatinine clearance 72, eGFR> 60, creatinine 0.5, serum Osmo 280, troponin I 0.013.
On examination: Lungs are clear normal heart rate rhythm
Medical History
Past Medical History
Past Medical History: Reports Psychiatric (Anxiety) and Other (Diverticulitis)
Past Surgical History: Reports Appendectomy and Gynocological (Hysterectomy along with bladder recorrection.)
Social History
Tobacco: Non-smoker
Alcohol: None
Drug: None
Personal:
Living: With Family
Employment: Employed
Family History
Family History: Reviewed & Not Pertinent
Allergies / Home Medications
Allergies
Allergy/AdvReac Type Severity Reaction Status Date / Time
aspirin Allergy NAUSEA, Verified 09/03/25 06:39
DIZZY
ciprofloxacin (From Cipro) Allergy tendon Verified 09/03/25 06:39
problem
levofloxacin (From Levaquin) Allergy Vomiting-severe Verified 09/03/25 15:30
nausea and
vomiting
Allergies reflects when Allergies were last updated in [facility].
Home Medications with original date entered in [facility]
Allergy/Medication List:
Home Medications
Algae Saúl 1 dose PO DAILY 08/28/25
Algae D3 Complete 1 dose PO DAILY 08/28/25
Herbal Ashwaganda 1 dose PO DAILY 08/28/25
MCT Oil 1 dose PO DAILY 08/28/25
Mushroom Coffee 1 dose PO DAILY 08/28/25
Stonium Boost 1 dose PO DAILY 08/28/25
Sutab 1 dose PO DIRECTED 08/28/25
Total Restore 1 dose PO DAILY 08/28/25
ascorbic acid (vitamin C) 1,000 mg tablet (Vitamin C) 1,000 - 2,000 mg PO DAILY 08/28/25
metronidazole 500 mg tablet 500 mg PO DIRECTED 08/28/25
neomycin 500 mg tablet 500 mg PO DIRECTED 08/28/25
Review of Systems
-
History Source: Patient
A 12 point Review of Systems was completed except as noted: Yes
Physical Exam
Vital Signs
Vital Signs
Temp Pulse Resp BP Pulse Ox
98.8 F 61 16 100/57 93
09/04/25 07:45 09/04/25 09:46 09/04/25 07:45 09/04/25 09:46 09/04/25 07:45
Physical Exam
General: Well Developed
HEENT: Normocephalic
Respiratory: Clear
Cardiac: S1/S2 and Regular Rhythm
GI: Soft, Non Tender, Non Distended and Other (Incisional scar)
Genito-urinary: No Costovertebral Tend
Musculoskeletal: No Clubbing and No Edema
Neuro: AO x 3
Psych: Calm
Laboratory Results
-
Laboratory Results
09/04/25 04:46
09/04/25 04:46
Troponin I 0.013 ng/ml 09/04/25 04:58
Impression / Plan
-
IMPRESSION & PLAN:
69-year-old female with known history of anxiety, diverticulitis admitted for robotic appendectomy for submucosal appendiceal lesion with suspicion mucocele, on her s/p appendectomy day 1 experienced dizziness, nausea with wnll troponin, unchanged
EKG findings when comparing with the previous, with a low blood pressure improving with normal saline,
# S/p appendectomy day 1 POD with dizziness:
EKG on 09/04 showed normal sinus rhythm with normal GA, QT interval.
WBC 6.5--7.9, Hemoglobin 10.4--11.2, Chemistry: Blood glucose 113high, bun 6 low, estimated creatinine clearance 72, eGFR> 60, creatinine 0.5, serum Osmo 280, troponin I 0.013.
On examination: Lungs are clear normal heart rate rhythm
Orthostatic vitals
Currently on IV fluids and patient received midodrine and feeling better with improvement on blood pressure 103/63.
Differential diagnosis : patient has no symptoms of warmth, pain,one episode of dizziness, she mention she had a past history of BPPV, unchanged EKG findings with normal troponin level was less likely for cerebral TIA, cardiovascular disease.
This episode probably secondary to hypovolemia.
Monitor vitals
Recommend to follow-up for her lipid panel, vestibular PT for the BPPV as an outpatient.
# Hypotension secondary to hypovolemia:
By given her postanesthetic effect, n.p.o. might have triggered the patient's nausea, hypotension episodes however she is improving with IV fluids, midodrine.
EKG normal finding
Encouraged to start with liquids followed by soft diet.
Code full
DVT prophylaxis: Lovenox
Disposition Home
Diet: Regular
[2025-09-04] MEDS: ANTIVERT 25 MG PO (12:12)
--- NOTE | 2025-09-04 12:53 | PTOTSP ---
The patient was able to ambulate, perform stairs, and participate in ADL's as noted. The patient is moving independently and anticipates discharge home when medically stable. No PT needs identified at this time, will sign off.
[2025-09-04] MEDS: MILK OF MAGNESIA 30 ML PO (15:01)
[2025-09-04] MEDS: LOVENOX 40 MG SC (17:09)
[2025-09-05 03:47] VITALS: BP 102/67
[2025-09-05] MEDS: TORADOL 10 MG IV ×2 (04:17→10:01)
[2025-09-05] MEDS: TYLENOL PO (04:17)
[2025-09-05] MEDS: NSS 1000 IV (04:18)
[2025-09-05 06:00] VITALS: BMI 26.2
[2025-09-05 07:00] VITALS: BP 127/75
--- NOTE | 2025-09-05 07:42 | W.PN.HOSP.TC ---
Today's Communication/Plan
-
Follow-up with surgeon Dr. Ruby within a week of discharge
Assessment / Plan
Assessment / Plan
69-year-old female who underwent a colonoscopy by Dr. Berna Flores of showing a sizable submucosal lesion at the appendiceal orifice with some mucus coming from the orifice itself. CT scan prior apparently on review had a concern for mucocele and
underwent robotic appendectomy.
# S/p appendectomy day 1 POD with dizziness:
EKG on 09/04 showed normal sinus rhythm with normal WI, QT interval.
WBC 6.5--7.9, Hemoglobin 10.4--11.2, Chemistry: Blood glucose 113high, bun 6 low, estimated creatinine clearance 72, eGFR> 60, creatinine 0.5, serum Osmo 280, troponin I 0.013.
On examination: Lungs are clear normal heart rate rhythm
Orthostatic vitals
Currently on IV fluids and patient received midodrine and feeling better with improvement on blood pressure 103/63.
Differential diagnosis : patient has no symptoms of warmth, pain,one episode of dizziness, she mention she had a past history of BPPV, unchanged EKG findings with normal troponin level was less likely for cerebral TIA, cardiovascular disease.
This episode probably secondary to hypovolemia.
Monitor vitals
Recommend to follow-up for her lipid panel, vestibular PT for the BPPV as an outpatient.
# Hypotension secondary to hypovolemia:
By given her postanesthetic effect, n.p.o. might have triggered the patient's nausea, hypotension episodes however she is improving with IV fluids, midodrine.
EKG normal finding
Encouraged to start with liquids followed by soft diet.
the patient is getting discharged today with outpatient follow-up in a few weeks with Dr. Ruby.
Lovenox for DVT prophylaxis
-Analgesics prn
Anticipated Discharge: Today
Subjective/Interval History
-
Date of Service: September 05, 2025
Overnight the patient feels better however she feels like her legs were swelling and she was bloating,
Objective Data
-
Labs:
Laboratory Results
09/05/25
07:25
WBC Pending
Hgb Pending
Hct Pending
Plt Count Pending
Sodium Pending
Potassium Pending
Chloride Pending
Carbon Dioxide Pending
BUN Pending
Creatinine Pending
Glucose Pending
Calcium Pending
Total Bilirubin Pending
AST Pending
ALT Pending
Alkaline Phosphatase Pending
Vital Signs:
Vital Signs
Temp Pulse Resp BP Pulse Ox
98.3 F 64 14 102/67 97
09/05/25 03:47 09/05/25 03:47 09/05/25 03:47 09/05/25 03:47 09/05/25 03:47
I&O
09/04/25 09/05/25 09/06/25
06:59 06:59 06:59
Intake Total 500 / 500 4243 / 4243
Output Total 1100 / 1100
Balance -600 / -600 4243 / 4243
Review of Systems
-
History Source: Patient
All other systems: Reviewed and negative
Physical Exam
-
HEENT: Normocephalic
Respiratory: Clear to Auscultation
Cardiac: Regular Rhythm and S1/S2
GI: Soft, Nontender and Nondistended
Neuro: AO x 3
Psych: Calm
[2025-09-05] MEDS: TYLENOL 650 MG PO (07:56)
[2025-09-05 08:24] LABS: Hematocrit 33.0 % (37.0-47.0); Hemoglobin 10.6 g/dL (12.0-16.0); Mean Corp Hgb Conc. 32.1 g/dL (33.0-37.0); Mean Corpuscular Volume 84.4 fL (81.0-99.0); Platelet Count 152 10^3/uL (130-400); Red Cell Dist. Width 14.5 % (11.5-14.5)
--- NOTE | 2025-09-05 08:33 | W.PN.CRS1 ---
Today's Communication / Plan
-
dispo planning
Assessment/Plan
-
69 yo female with a submucosal appendiceal lesion with ?mucocele POD#2 robotic appendectomy with partial cecectomy
AFVSS, hypotension resolved
Labs stable
No further dizziness
Plan:
-Continue regular diet
-D/C IVF
-OOB as tolerated
-Lovenox for DVT prophylaxis
-Appreciate hospitalist
-OR pathology pending.
-Analgesics prn
Subjective Data
Subjective Data
Date of Service: September 05, 2025
Pt seen and examined at bedside with Dr. Alvarez. Denies n/v. tolerating diet. OOB to chair. Denies dizziness/vision changes. Eager to go home. Feels she has put on weight since presenting with generalized edema noted
Objective Data
-
Vital Signs
Temp Pulse Resp BP Pulse Ox
97.6 F 55 20 127/75 95
09/05/25 07:00 09/05/25 07:00 09/05/25 07:00 09/05/25 07:00 09/05/25 08:01
Intake & Output
09/04/25 09/05/25 09/06/25
06:59 06:59 06:59
Intake Total 500 / 500 4243 / 4243
Output Total 1100 / 1100
Balance -600 / -600 4243 / 4243
Intake:
Oral fluids 0 / 2040
IV fluids (Total) 500 / 500 2203 / 2203
Output:
Urine, Nguyen 250 / 250
Urine, Voided 850 / 850
Other:
How many times incontinent 1
MODERATE amount urine
Number of approximated MODERATE 2
amounts of urine
Number of approximated LARGE 1 1
amounts of urine
Lab Results
12/13/25 07:25
Physical Exam
-
General: No Acute Distress
Abdomen: Soft, Non Distended and Non Tender
Skin: Warm and Dry
Incision: Clear, Dry, Intact (ecchymosis to lower pfannenstiel incision)
[2025-09-05 08:52] LABS: ALT (SGPT) 13 U/L (0-35); AST (SGOT) 17 U/L (14-36); Albumin 3.4 g/dl (3.5-5.0); Alkaline Phosphatase 56 U/L (38-126); Blood Urea Nitrogen 10 mg/dl (7-17); Calcium 8.0 mg/dl (8.4-10.2); Carbon Dioxide 28 mmol/L (22-30); Chloride 111 mmol/L (98-107); Estimated Creatinine Clearance 72 ml/min; Glucose 78 mg/dl (70-99); Potassium 4.1 mmol/L (3.5-5.1); Sodium 140 mmol/L (135-145); Total Protein 5.9 g/dl (6.3-8.2); eGFR > 60.00
--- NOTE | 2025-09-05 09:50 | W.DS.TRANS ---
DC Summary - [facility]
-
Discharge Instructions:
Discharge Diagnosis/Procedures robotic appendectomy with partial cecectomy
Diet Regular
Activity No strenuous activity
Additional Activity No lifting over 10lbs (gallon of milk)
Driving Restrictions No driving for 1 week
Bathing Restrictions OK to Shower
Wound Care Allow glue to naturally fall off. Do not pick at
incisions.
Instructions:
Stand-Alone Forms:
Changes to Home Medications: No
Discharge Medications:
DC Medications w/original date entered in [employer]
Algae Saúl 1 dose PO DAILY 08/28/25
Algae D3 Complete 1 dose PO DAILY 08/28/25
Herbal Ashwaganda 1 dose PO DAILY 08/28/25
MCT Oil 1 dose PO DAILY 08/28/25
Mushroom Coffee 1 dose PO DAILY 08/28/25
Stonium Boost 1 dose PO DAILY 08/28/25
Total Restore 1 dose PO DAILY 08/28/25
ascorbic acid (vitamin C) 1,000 mg tablet (Vitamin C) 1,000 - 2,000 mg PO DAILY 08/28/25
tramadol 50 mg tablet 50 mg PO Q6H PRN Pain #20 tabs 09/04/25
Home Medication Changes
Pending Results: No
[2025-09-05 11:00] VITALS: BP 124/68
--- NOTE | 2025-09-05 11:18 | CM ---
Patient has been medically cleared for discharge to home with no additional skilled services. Declined RN at this time. Patient has arranged for transport home.
== END 2025-09-05 11:18 | disposition home or self-care (01) ==
LOC: SDS 05:59
PROVIDERS: Nurse Practitioner Gerontology; Physician Assistant; ATTENDING PHYSICIAN Surgery; CONSULT PHYSICIAN Internal Medicine; FAMILY PHYSICIAN Family Medicine
DX: K38.8 Other specified diseases of appendix (principal)
CPT/HCPCS: 44970; 70450; 80048; 80053; 83930; 83935; 84300; 84484; 85025; 85027; 88307; 93005; 97162; J1335